=== PATIENT | male | born 1970 | race Caucasian/White ===

== ENCOUNTER 2019-02-25 17:24 | Inpatient (IN) | payer BC, OTHER ==
[~2019-02-25] VITALS: Ht 185.4 cm; Wt 76.7 kg
--- NOTE | 2019-02-25 17:54 | NUR ---
THIS IS A 49 YO MALE BIBA FROM [facility] FOR CHEST PRESSURE AND PAIN LOCATED ON LEFT SIDE OF CHEST WITH ASSOCIATED NUMBNESS AND TINGLING IN LEFT ARM. PATIENT STATES "I WAS SHOVELING MY WHOLE DRIVEWAY NAD GOT A LITTLE SHORT OF BREATH SO I WENT INSIDE, SAT DOWN AND WATCHED THE GAME. I WENT TO THE BATHROOM TO POOP, BUT WAS STRAINING, THEN WENT BACK OUT AND STARTED HAVING THE CHEST PRESSURE AND LEFT ARM TINGLING". PATIENT WAS SEEN AT [facility], FIRST TROPONIN WAS 0.00, SECOND TROPONIN WAS 0.11. TYLENOL WAS GIVEN AT [facility], NO MEDICATIONS GIVEN EN ROUTE. PAIN HAD CEASED, NO NITROGLYCERIN GIVEN. PATIENT HAS HX OF DIABETES, BLOOD SUGAR WAS 240, WAS GIVEN 4 UNITS OF INSULIN AT [facility]. PATIENT IS A&OX4, DENIES PAIN AT THIS TIME, NO ACUTE DISTRESS, VSS AT THIS MOMENT. DENIES NEEDS AT THIS TIME.
--- NOTE | 2019-02-25 18:13 | NUR ---
DISCUSSED WITH MD ABOUT NEED FOR ANTICOAGULANT THERAPY, MD STATED HE WANTS TO HOLD FOR NOW UNTIL REPEAT TROPONIN RESULTS.
[2019-02-25] MEDS ORDERED: ASPIRIN 81 MG TABLET CHEW ONE (18:27)
[2019-02-25] MEDS ORDERED: ASPIRIN 81 MG TABLET CHEW PO ONE (18:30)
--- NOTE | 2019-02-25 18:30 | NUR ---
dr darnell spoke with dr rendon
[2019-02-25] MEDS ORDERED: PLEASE ENTER ALLERGIES MC SCH (18:36)
[2019-02-25] MEDS ORDERED: HEPARIN 25,000 UNITS/500ML PMX 500 ML ONE (18:52)
[2019-02-25] MEDS ORDERED: HEPARIN 5,000 UNITS/ML, 1ML ONE (18:52)
--- NOTE | 2019-02-25 18:57 | NUR ---
REPORT GIVEN TO YISSEL GARCIA. PLAN OF CARE DISCUSSED.
[2019-02-25] MEDS ORDERED: SODIUM CHLORIDE FLUSH 10ML SYR IVF PRN (19:00)
[2019-02-25] MEDS: HEPARIN 25,000 UNITS/500ML PMX 500 ML IV PRN (19:11)
--- NOTE | 2019-02-25 19:11 | NUR ---
SECOND PIV ESTABLISHED. HEPARIN INITIATED PER PROTOCOL. ANTI XA ORDER PLACED. HOSPITALIST AT BEDSIDE TO DISCUSS POC. PT DENIES CP AT THIS TIME OR NEED FOR PAIN MEDICATIONS. NSR ON MONITOR. PWD. NAD
[2019-02-25] MEDS ORDERED: NITROGLYCERIN 0.4 MG BOTTLE (25 TABS) SL PRN (19:30)
[2019-02-25] MEDS ORDERED: POLYETHYLENE GLYCOL 17 GM PACKET PO PRN (19:30)
[2019-02-25] MEDS ORDERED: BISACODYL 10 MG SUPP PR PRN (19:30)
[2019-02-25] MEDS ORDERED: HEPARIN 5,000 UNITS/ML, 1ML IV ONE (19:30)
[2019-02-25] MEDS ORDERED: ONDANSETRON ODT 4 MG PO PRN (19:30)
[2019-02-25] MEDS ORDERED: morphine SULFATE 10 MG/ML, 1ML IVPush PRN (19:30)
[2019-02-25 20:02] VITALS: BP 129/69
[2019-02-25 20:23] LABS: HEMOGLOBIN A1C 7.2 % (4.2-6.3)
[2019-02-25] MEDS: ATORVASTATIN 80 MG TABLET PO SCH (20:24)
[2019-02-25] MEDS: SODIUM CHLORIDE FLUSH 10ML SYR IVF SCH (20:25)
[2019-02-26 00:49] VITALS: BP 108/70
[2019-02-26] MEDS ORDERED: ASPIRIN 325 MG TABLET EC PO SCH (06:00)
[2019-02-26 07:02] LABS: BASOPHILS # (AUTO) 0.03 x10^3/uL (0-0.1); BASOPHILS % (AUTO) 0 % (0-1); EOSINOPHILS # (AUTO) 0.09 x10^3/uL (0-0.4); EOSINOPHILS % (AUTO) 1 % (1-7); LYMPHOCYTES # (AUTO) 1.47 x10^3/uL (1-3.4); LYMPHOCYTES % (AUTO) 16 % (22-44); MD NO; MEAN CORPUSCULAR HGB CONC 34.7 g/dL (33.2-36.2); MEAN CORPUSCULAR VOLUME 89.5 fL (81-97); MEAN PLATELET VOLUME 7.9 fL (7.4-10.4); MONOCYTES # (AUTO) 0.78 x10^3/uL (0.2-0.8); MONOCYTES % (AUTO) 8 % (2-9); NEUTROPHILS # (AUTO) 7.12 x10^3/uL (1.8-6.8); NEUTROPHILS % (AUTO) 75 % (42-75); PLATELET COUNT 242 x10^3/uL (130-400); RED BLOOD COUNT 4.88 x10^6/uL (4.38-5.82); RED CELL DISTRIBUTION WIDTH 13.4 % (9.4-14.8)
[2019-02-26 07:06] LABS: ALBUMIN 3.2 g/dL (3.4-5.0)
[2019-02-26 07:13] LABS: ALKALINE PHOSPHATASE 91 U/L (45-117); BILIRUBIN,TOTAL 2.1 mg/dL (0.2-1.0); CHOL/HDL RATIO 9.2; CHOLESTEROL, TOTAL 183 mg/dL (140-239); CREATININE 0.86 mg/dL (0.7-1.3); HDL CHOL % 11 % (26-37); HDL CHOLESTEROL (DIRECT) 20 mg/dL (40-60)
[2019-02-26 07:40] LABS: ANION GAP 10 mmol/L (5-15); CHLORIDE 107 mmol/L (98-107)
[2019-02-26 07:45] VITALS: BP 116/76
[2019-02-26 07:58] LABS: ALANINE AMINOTRANSFERASE 58 U/L (12-78)
[2019-02-26 08:03] LABS: TRIGLYCERIDES 1134 mg/dL (50-200)
[2019-02-26 08:06] LABS: TOTAL PROTEIN 6.5 g/dL (6.4-8.2)
[2019-02-26] MEDS: SENNA/DOCUSATE TABLET PO SCH (08:49)
[2019-02-26] MEDS: SODIUM CHLORIDE FLUSH 10ML SYR IVF SCH ×2 (08:49→21:42)
[2019-02-26] MEDS ORDERED: SODIUM CHLORIDE 0.9% 1,000 ML IV SCH ×2 (11:00→13:50)
[2019-02-26] MEDS: ACETAMINOPHEN 325 MG TABLET PO PRN ×2 (11:17→21:42)
[2019-02-26] MEDS ORDERED: FENTANYL PF 100 MCG/2ML ONE (12:57)
[2019-02-26] MEDS ORDERED: MIDAZOLAM 1 MG/ML, 5ML ONE (12:57)
[2019-02-26] MEDS ORDERED: TICAGRELOR 90 MG TABLET ONE (12:57)
[2019-02-26] MEDS ORDERED: BIVALIRUDIN 250 MG ONE (12:58)
[2019-02-26] MEDS ORDERED: LIDOCAINE-MPF 1%, 5ML ONE (12:58)
[2019-02-26] MEDS ORDERED: VERAPAMIL 2.5 MG/ML, 2ML ONE (12:58)
[2019-02-26] MEDS ORDERED: DULA0.75 INJ (13:01)
[2019-02-26 13:16] VITALS: BP 116/75
[2019-02-26] MEDS ORDERED: SODIUM CHLORIDE 0.9%, 250ML IVBOLUS ONE (15:30)
[2019-02-26] MEDS: INSULIN LISPRO 100 UNITS/ML, PEN SQ-INSULIN SCH ×3 (18:03→21:54)
[2019-02-26 20:37] VITALS: BP 97/73
[2019-02-26] MEDS: ATORVASTATIN 80 MG TABLET PO SCH (21:42)
[2019-02-26] MEDS: HEPARIN 25,000 UNITS/500ML PMX 500 ML IV PRN (21:47)
[2019-02-27] MEDS: HEPARIN 5,000 UNITS/ML, 1ML IV PRN ×2 (00:32→08:33)
[2019-02-27 03:24] VITALS: BP 112/79
[2019-02-27 05:31] LABS: ALANINE AMINOTRANSFERASE 51 U/L (12-78); ALBUMIN 3.4 g/dL (3.4-5.0); ANION GAP 6 mmol/L (5-15); CHLORIDE 108 mmol/L (98-107); CREATININE 0.78 mg/dL (0.7-1.3)
[2019-02-27 05:33] LABS: ALKALINE PHOSPHATASE 88 U/L (45-117); BILIRUBIN,TOTAL 2.6 mg/dL (0.2-1.0); CALCIUM 8.5 mg/dL (8.5-10.1)
[2019-02-27 05:34] LABS: BASOPHILS # (AUTO) 0.03 x10^3/uL (0-0.1); BASOPHILS % (AUTO) 0 % (0-1); EOSINOPHILS # (AUTO) 0.09 x10^3/uL (0-0.4); EOSINOPHILS % (AUTO) 1 % (1-7); LYMPHOCYTES # (AUTO) 1.47 x10^3/uL (1-3.4); LYMPHOCYTES % (AUTO) 19 % (22-44); MD NO; MEAN CORPUSCULAR HEMOGLOBIN 30.2 pg (27.5-34.5); MEAN CORPUSCULAR HGB CONC 33.7 g/dL (33.2-36.2); MEAN CORPUSCULAR VOLUME 89.6 fL (81-97); MEAN PLATELET VOLUME 8.1 fL (7.4-10.4); MONOCYTES # (AUTO) 0.86 x10^3/uL (0.2-0.8); MONOCYTES % (AUTO) 11 % (2-9); NEUTROPHILS # (AUTO) 5.47 x10^3/uL (1.8-6.8); NEUTROPHILS % (AUTO) 69 % (42-75); PLATELET COUNT 215 x10^3/uL (130-400); RED BLOOD COUNT 5.01 x10^6/uL (4.38-5.82); RED CELL DISTRIBUTION WIDTH 12.9 % (9.4-14.8)
[2019-02-27] MEDS ORDERED: ASPIRIN 81 MG TABLET EC PO SCH (06:00)
[2019-02-27] MEDS: SENNA/DOCUSATE TABLET PO SCH (08:32)
[2019-02-27] MEDS: SODIUM CHLORIDE FLUSH 10ML SYR IVF SCH ×2 (08:34→21:49)
[2019-02-27] MEDS ORDERED: MAGNESIUM HYDROXIDE 8%, 30ML UDC PO PRN (09:00)
[2019-02-27] MEDS: INSULIN LISPRO 100 UNITS/ML, PEN SQ-INSULIN SCH ×4 (09:15→21:50)
[2019-02-27 12:05] VITALS: BP 110/75
[2019-02-27] MEDS ORDERED: METOPROLOL TARTRATE 25 MG TABLET PO ONE (13:30)
[2019-02-27] MEDS ORDERED: CHLORHEXIDINE 15 ML UDC MM PRN (13:30)
[2019-02-27] MEDS ORDERED: INSULIN LISPRO 100 UNITS/ML, PEN SQ-INSULIN SCH (13:30)
[2019-02-27 14:09] LABS: BASOPHILS # (AUTO) 0.02 x10^3/uL (0-0.1); BASOPHILS % (AUTO) 0 % (0-1); EOSINOPHILS # (AUTO) 0.03 x10^3/uL (0-0.4); EOSINOPHILS % (AUTO) 0 % (1-7); LYMPHOCYTES # (AUTO) 1.18 x10^3/uL (1-3.4); LYMPHOCYTES % (AUTO) 16 % (22-44); MD NO; MEAN CORPUSCULAR HEMOGLOBIN 30.2 pg (27.5-34.5); MEAN CORPUSCULAR HGB CONC 33.4 g/dL (33.2-36.2); MEAN CORPUSCULAR VOLUME 90.2 fL (81-97); MEAN PLATELET VOLUME 7.8 fL (7.4-10.4); MONOCYTES # (AUTO) 0.77 x10^3/uL (0.2-0.8); MONOCYTES % (AUTO) 11 % (2-9); NEUTROPHILS # (AUTO) 5.29 x10^3/uL (1.8-6.8); NEUTROPHILS % (AUTO) 73 % (42-75); PLATELET COUNT 254 x10^3/uL (130-400); RED BLOOD COUNT 5.21 x10^6/uL (4.38-5.82); RED CELL DISTRIBUTION WIDTH 12.9 % (9.4-14.8)
[2019-02-27 14:12] LABS: ANION GAP 6 mmol/L (5-15); CALCIUM 9.1 mg/dL (8.5-10.1); CHLORIDE 105 mmol/L (98-107); CREATININE 0.99 mg/dL (0.7-1.3)
[2019-02-27 14:13] LABS: ALANINE AMINOTRANSFERASE 50 U/L (12-78); ALBUMIN 3.7 g/dL (3.4-5.0)
[2019-02-27 14:15] LABS: ALKALINE PHOSPHATASE 96 U/L (45-117); TOTAL PROTEIN 7.8 g/dL (6.4-8.2)
[2019-02-27 14:20] LABS: INTERNATIONAL NORMALIZED RATIO 1.02 (0.93-1.1); PROTHROMBIN TIME 10.7 Seconds (9.6-11.5)
[2019-02-27 15:49] LABS: HEMOGLOBIN A1C 7.2 % (4.2-6.3)
[2019-02-27 16:30] VITALS: BP 113/74
[2019-02-27 16:39] LABS: MICROSCOPIC NOT IND
[2019-02-27] MEDS ORDERED: SODIUM CHLORIDE FLUSH 10ML SYR IVF SCH (21:00)
[2019-02-27] MEDS: HEPARIN 25,000 UNITS/500ML PMX 500 ML IV PRN (21:07)
[2019-02-27] MEDS: MUPIROCIN OINT 2%, 22GM TP SCH (21:48)
[2019-02-27] MEDS: ATORVASTATIN 80 MG TABLET PO SCH (21:48)
[2019-02-27 21:56] VITALS: BP 117/84
[2019-02-28 04:10] VITALS: BP_SYST 112; BP_SYST 117; BP_DIAS 70; BP_DIAS 75
[2019-02-28] MEDS ORDERED: METOPROLOL TARTRATE 25 MG TABLET ONE (04:18)
[2019-02-28] MEDS: MUPIROCIN OINT 2%, 22GM TP SCH (05:07)
[2019-02-28] MEDS ORDERED: HEPARIN 1,000 UNITS/ML, 10ML ONE (06:49)
[2019-02-28] MEDS ORDERED: PAPAVERINE 30 MG/ML, 2ML ONE (06:49)
[2019-02-28] MEDS ORDERED: MIDAZOLAM 10MG/2 ML ONE (07:28)
[2019-02-28] MEDS ORDERED: FENTANYL PF 250 MCG/5ML ONE ×4 (07:28→07:29)
[2019-02-28] MEDS ORDERED: CALCIUM CHLORIDE 10%, 10ML SYR ONE (07:29)
[2019-02-28] MEDS ORDERED: PROPOFOL 10 MG/ML, 20ML ONE (07:29)
[2019-02-28] MEDS ORDERED: ROCURONIUM 10MG/ML,5ML ONE ×3 (07:29→10:42)
[2019-02-28] MEDS ORDERED: AMINOCAPROIC ACID 250 MG/ML, 20ML ONE ×2 (07:29)
[2019-02-28] MEDS ORDERED: PHENYLEPHRINE 10 MG/ML ONE (07:29)
[2019-02-28] MEDS ORDERED: EPINEPHRINE 1 MG/ML, 1ML ONE (07:29)
[2019-02-28] MEDS ORDERED: DEXMEDETOMIDINE 200 MCG in SODIUM CHLORIDE 0.9% 48 ML IV SCH (07:30)
[2019-02-28] MEDS ORDERED: REGULAR INSULIN 62.5 UNITS in SODIUM CHLORIDE 0.9% 249.375 ML IV PRN (07:30)
[2019-02-28] MEDS ORDERED: POTASSIUM CHLORIDE 80 MEQ, SODIUM BICARBONATE 8.4% 10 MEQ, MAGNESIUM SULFATE 0.5 GM, LI... IV PRN (07:30)
[2019-02-28] MEDS ORDERED: VANCOMYCIN 1,300 MG in SODIUM CHLORIDE 0.9% 250 ML IVPB PRN (07:30)
[2019-02-28] MEDS ORDERED: EPINEPHRINE 2 MG in SODIUM CHLORIDE 0.9% 248 ML IV SCH (07:30)
[2019-02-28] MEDS ORDERED: CEFUROXIME 1.5 GM in SODIUM CHLORIDE 0.9% 50 ML IVPB PRN (07:30)
[2019-02-28] MEDS ORDERED: PHENYLEPHRINE 10 MG in SODIUM CHLORIDE 0.9% 249 ML IV PRN ×2 (07:30→12:05)
[2019-02-28] MEDS ORDERED: MANNITOL PMX 20% 500 ML IVPB PRN (07:30)
[2019-02-28] MEDS ORDERED: ALBUMIN HUMAN 5% 500 ML IV PRN (07:30)
[2019-02-28] MEDS ORDERED: HEPARIN 1,000 UNITS/ML, 10ML IV ONE (09:09)
[2019-02-28] MEDS ORDERED: PAPAVERINE 30 MG/ML, 2ML IV ONE (09:10)
[2019-02-28] MEDS ORDERED: PROTAMINE SULFATE 10 MG/ML, 25ML ONE (10:42)
[2019-02-28] MEDS ORDERED: DESMOPRESSIN 24 MCG in SODIUM CHLORIDE 0.9% 50 ML IVPB ONE (12:00)
[2019-02-28] MEDS ORDERED: ALBUMIN HUMAN 25% 50 ML ONE (12:05)
[2019-02-28] MEDS ORDERED: DEXMEDETOMIDINE 200 MCG in SODIUM CHLORIDE 0.9% 48 ML IV PRN (12:05)
[2019-02-28] MEDS ORDERED: SODIUM CHLORIDE 0.9% 1,000 ML IV PRN (12:05)
[2019-02-28] MEDS ORDERED: SODIUM BICARBONATE 1 MEQ/ML, 50ML VIAL ONE (12:05)
[2019-02-28] MEDS ORDERED: LIDOCAINE-MPF 2% ,5ML ONE (12:05)
[2019-02-28] MEDS ORDERED: VASOPRESSIN 50 UNIT in SODIUM CHLORIDE 0.9% 247.5 ML IV PRN (12:05)
[2019-02-28] MEDS ORDERED: NITROGLYCERIN/D5W PMX 250 ML IV PRN (12:05)
[2019-02-28] MEDS ORDERED: DOBUTAMINE 250 MG in SODIUM CHLORIDE 0.9% 230 ML IV PRN (12:05)
[2019-02-28] MEDS ORDERED: HEPARIN 1,000 UNITS/ML, 30ML ONE (12:05)
[2019-02-28] MEDS ORDERED: SODIUM BICARB 8.4%, 50ML SYRINGE ONE (12:06)
[2019-02-28] MEDS: REGULAR INSULIN 62.5 UNITS in SODIUM CHLORIDE 0.9% 249.375 ML IV PRN ×2 (12:28→23:28)
[2019-02-28] MEDS ORDERED: PROCHLORPERAZINE 5 MG/ML, 2ML IVPush PRN (12:30)
[2019-02-28] MEDS ORDERED: ONDANSETRON 2MG/ML, 2ML IVPush PRN (12:30)
[2019-02-28] MEDS ORDERED: BISACODYL 10 MG SUPP PR PRN (12:30)
[2019-02-28] MEDS: KSCALE TO 4.5 IV SCH ×2 (12:30→18:56)
[2019-02-28] MEDS ORDERED: SODIUM BICARB 8.4%, 50ML SYRINGE IV PRN (12:30)
[2019-02-28] MEDS ORDERED: DEXTROSE 50%, 50ML SYRINGE IVPush PRN (12:30)
[2019-02-28] MEDS ORDERED: EPINEPHRINE 2 MG in SODIUM CHLORIDE 0.9% 248 ML IV PRN (12:30)
[2019-02-28] MEDS ORDERED: ACETAMINOPHEN 650 MG SUPP PR PRN (12:30)
[2019-02-28] MEDS ORDERED: INSULIN REGULAR 100 UNITS/ML, 3ML VIAL IVPush PRN (12:30)
[2019-02-28] MEDS ORDERED: BISACODYL 5 MG EC TABLET PO PRN (12:30)
[2019-02-28] MEDS ORDERED: GLUCAGON 1 MG IM PRN (12:30)
[2019-02-28] MEDS ORDERED: DEXTROSE 4 GM TAB.CHEW PO PRN (12:30)
[2019-02-28 12:40] LABS: GLUCOSE BY BLOOD GAS ANALYZER 216 mg/dL (70-110); HEMOGLOBIN BY BLOOD GAS ANALYZ 11.5 g/dL (14.0-18.0); POTASSIUM BY BLOOD GAS ANALYZR 3.3 mmol/L (3.6-5.5)
[2019-02-28] MEDS: MORPHINE SULFATE 4 MG/ML, 1ML IVPush PRN ×2 (13:30→16:27)
[2019-02-28] MEDS ORDERED: POTASSIUM CHLORIDE 30 MEQ in SODIUM CHLORIDE 0.9% 100 ML IV ONE (14:01)
[2019-02-28] MEDS: INSULIN LISPRO 100 UNITS/ML, PEN SQ-INSULIN SCH ×2 (16:00→20:39)
[2019-02-28] MEDS: OXYcodone IR 5MG TABLET PO PRN (16:21)
[2019-02-28] MEDS: MAGNESIUM SULFATE 1 GM in SODIUM CHLORIDE 0.9% 50 ML IVPB SCH (16:48)
[2019-02-28] MEDS: LACTATED RINGERS 1,000 ML IV PRN ×3 (17:00→20:00)
[2019-02-28] MEDS ORDERED: HYDROmorphone 1 MG/ML, 1ML INJ IV ONE (18:00)
[2019-02-28] MEDS ORDERED: HYDROmorphone 2 MG/ML, 1ML ONE (18:54)
[2019-02-28] MEDS: ACETAMINOPHEN 325 MG TABLET PO PRN (19:14)
[2019-02-28] MEDS: SODIUM CHLORIDE FLUSH 10ML SYR IVF SCH (20:34)
[2019-02-28] MEDS: MUPIROCIN OINT 2%, 22GM NAS SCH (20:34)
[2019-02-28] MEDS: CEFUROXIME 1.5 GM in SODIUM CHLORIDE 0.9% 50 ML IVPB SCH (20:34)
[2019-02-28] MEDS: VANCOMYCIN 1,300 MG in SODIUM CHLORIDE 0.9% 250 ML IVPB SCH (20:34)
[2019-02-28] MEDS: DOCUSATE 100 MG CAPSULE PO SCH (20:35)
[2019-02-28] MEDS ORDERED: ALBUMIN HUMAN 5% 500 ML IV ONE (21:30)
[2019-03-01] MEDS: OXYcodone IR 5MG TABLET PO PRN ×6 (00:26→20:13)
[2019-03-01] MEDS: KSCALE TO 4.5 IV SCH ×2 (00:47→05:40)
[2019-03-01] MEDS: INSULIN LISPRO 100 UNITS/ML, PEN SQ-INSULIN SCH ×5 (04:26→20:27)
[2019-03-01 04:50] LABS: INTERNATIONAL NORMALIZED RATIO 1.09 (0.93-1.1); PROTHROMBIN TIME 11.4 Seconds (9.6-11.5)
[2019-03-01 04:55] LABS: ANION GAP 7 mmol/L (5-15); CHLORIDE 112 mmol/L (98-107)
[2019-03-01 05:11] LABS: BASOPHILS % (AUTO) 0 % (0-1); EOSINOPHILS % (AUTO) 0 % (1-7); LYMPHOCYTES # (AUTO) 0.44 x10^3/uL (1-3.4); LYMPHOCYTES % (AUTO) 6 % (22-44); MD NO; MEAN CORPUSCULAR HEMOGLOBIN 30.8 pg (27.5-34.5); MEAN CORPUSCULAR VOLUME 90.8 fL (81-97); MEAN PLATELET VOLUME 7.8 fL (7.4-10.4); MONOCYTES # (AUTO) 0.95 x10^3/uL (0.2-0.8); MONOCYTES % (AUTO) 12 % (2-9); NEUTROPHILS % (AUTO) 83 % (42-75); PLATELET COUNT 148 x10^3/uL (130-400); RED BLOOD COUNT 3.32 x10^6/uL (4.38-5.82); RED CELL DISTRIBUTION WIDTH 13.1 % (9.4-14.8)
[2019-03-01] MEDS: SODIUM CHLORIDE FLUSH 10ML SYR IVF SCH ×3 (08:46→20:27)
[2019-03-01] MEDS: VANCOMYCIN 1,300 MG in SODIUM CHLORIDE 0.9% 250 ML IVPB SCH (08:46)
[2019-03-01] MEDS: CEFUROXIME 1.5 GM in SODIUM CHLORIDE 0.9% 50 ML IVPB SCH (08:46)
[2019-03-01] MEDS: DOCUSATE 100 MG CAPSULE PO SCH ×2 (08:59→20:12)
[2019-03-01] MEDS: ASPIRIN 81 MG TABLET EC PO SCH (08:59)
[2019-03-01] MEDS: TICAGRELOR 90 MG TABLET PO SCH ×2 (08:59→20:13)
[2019-03-01] MEDS: MUPIROCIN OINT 2%, 22GM NAS SCH ×2 (09:00→20:12)
[2019-03-01] MEDS: METOPROLOL TARTRATE 25 MG TABLET PO/NG SCH ×2 (09:00→20:14)
[2019-03-01] MEDS ORDERED: MAGNESIUM HYDROXIDE 8%, 30ML UDC PO PRN (09:00)
[2019-03-01] MEDS ORDERED: HYDROcodone/APAP 5/325 TABLET PO PRN (11:00)
[2019-03-01 13:53] VITALS: BP 100/65
[2019-03-01] MEDS: MAGNESIUM SULFATE 1 GM in SODIUM CHLORIDE 0.9% 50 ML IVPB SCH (17:09)
[2019-03-01] MEDS: CHLORHEXIDINE 15 ML UDC MM SCH (20:12)
[2019-03-01] MEDS: ATORVASTATIN 80 MG TABLET PO SCH (20:13)
[2019-03-02] MEDS: OXYcodone IR 5MG TABLET PO PRN ×7 (00:09→21:37)
[2019-03-02 00:12] VITALS: BP 106/68
[2019-03-02 03:42] LABS: BASOPHILS # (AUTO) 0.02 x10^3/uL (0-0.1); BASOPHILS % (AUTO) 0 % (0-1); EOSINOPHILS # (AUTO) 0.01 x10^3/uL (0-0.4); EOSINOPHILS % (AUTO) 0 % (1-7); LYMPHOCYTES # (AUTO) 0.56 x10^3/uL (1-3.4); LYMPHOCYTES % (AUTO) 6 % (22-44); MD NO; MEAN CORPUSCULAR HEMOGLOBIN 30.7 pg (27.5-34.5); MEAN CORPUSCULAR HGB CONC 33.6 g/dL (33.2-36.2); MEAN CORPUSCULAR VOLUME 91.4 fL (81-97); MEAN PLATELET VOLUME 8.3 fL (7.4-10.4); MONOCYTES # (AUTO) 0.96 x10^3/uL (0.2-0.8); MONOCYTES % (AUTO) 11 % (2-9); NEUTROPHILS # (AUTO) 7.36 x10^3/uL (1.8-6.8); NEUTROPHILS % (AUTO) 83 % (42-75); PLATELET COUNT 175 x10^3/uL (130-400); RED BLOOD COUNT 3.38 x10^6/uL (4.38-5.82); RED CELL DISTRIBUTION WIDTH 12.9 % (9.4-14.8)
[2019-03-02 03:50] LABS: ANION GAP 7 mmol/L (5-15); CALCIUM 8.5 mg/dL (8.5-10.1); CHLORIDE 106 mmol/L (98-107); CREATININE 0.82 mg/dL (0.7-1.3)
[2019-03-02 07:11] VITALS: BP 125/70
[2019-03-02] MEDS: SODIUM CHLORIDE FLUSH 10ML SYR IVF SCH ×4 (09:00→21:35)
[2019-03-02] MEDS: ENOXAPARIN 40 MG/0.4 ML SQ SCH (09:00)
[2019-03-02] MEDS: INSULIN LISPRO 100 UNITS/ML, PEN SQ-INSULIN SCH ×4 (09:02→21:48)
[2019-03-02] MEDS: CHLORHEXIDINE 15 ML UDC MM SCH ×2 (09:03→21:35)
[2019-03-02] MEDS: MUPIROCIN OINT 2%, 22GM NAS SCH ×2 (09:03→21:35)
[2019-03-02] MEDS: TICAGRELOR 90 MG TABLET PO SCH ×2 (09:04→21:37)
[2019-03-02] MEDS: DOCUSATE 100 MG CAPSULE PO SCH ×2 (09:04→21:37)
[2019-03-02] MEDS: METOPROLOL TARTRATE 25 MG TABLET PO/NG SCH ×2 (09:04→21:37)
[2019-03-02] MEDS: ASPIRIN 81 MG TABLET EC PO SCH (09:08)
[2019-03-02 13:55] VITALS: BP 114/72
[2019-03-02] MEDS: MAGNESIUM SULFATE 1 GM in SODIUM CHLORIDE 0.9% 50 ML IVPB SCH (17:51)
[2019-03-02 20:31] VITALS: BP 115/71
[2019-03-02] MEDS: ATORVASTATIN 80 MG TABLET PO SCH (21:47)
[2019-03-03 01:25] VITALS: BP 113/88
[2019-03-03] MEDS: OXYcodone IR 5MG TABLET PO PRN ×7 (01:36→23:09)
[2019-03-03 02:18] LABS: ANION GAP 9 mmol/L (5-15); CALCIUM 8.8 mg/dL (8.5-10.1); CHLORIDE 105 mmol/L (98-107); CREATININE 0.77 mg/dL (0.7-1.3)
[2019-03-03 08:00] VITALS: BP 113/78
[2019-03-03] MEDS: CHLORHEXIDINE 15 ML UDC MM SCH (08:07)
[2019-03-03] MEDS: INSULIN LISPRO 100 UNITS/ML, PEN SQ-INSULIN SCH ×4 (08:08→20:15)
[2019-03-03] MEDS: DOCUSATE 100 MG CAPSULE PO SCH ×2 (08:10→20:13)
[2019-03-03] MEDS: TICAGRELOR 90 MG TABLET PO SCH ×2 (08:10→20:12)
[2019-03-03] MEDS: ASPIRIN 81 MG TABLET EC PO SCH (08:10)
[2019-03-03] MEDS: METOPROLOL TARTRATE 25 MG TABLET PO/NG SCH ×2 (08:11→20:12)
[2019-03-03] MEDS: ENOXAPARIN 40 MG/0.4 ML SQ SCH (08:12)
[2019-03-03] MEDS: MUPIROCIN OINT 2%, 22GM NAS SCH ×2 (08:13→20:12)
[2019-03-03] MEDS: SODIUM CHLORIDE FLUSH 10ML SYR IVF SCH ×4 (08:14→22:43)
[2019-03-03 14:00] VITALS: BP 106/69
[2019-03-03 20:01] VITALS: BP 120/76
[2019-03-03] MEDS: ATORVASTATIN 80 MG TABLET PO SCH (20:12)
[2019-03-04 00:14] VITALS: BP 112/78
[2019-03-04] MEDS ORDERED: MELATONIN 3 MG TABLET PO PRN (00:30)
[2019-03-04 05:45] LABS: BASOPHILS # (AUTO) 0.03 x10^3/uL (0-0.1); BASOPHILS % (AUTO) 0 % (0-1); EOSINOPHILS # (AUTO) 0.14 x10^3/uL (0-0.4); EOSINOPHILS % (AUTO) 2 % (1-7); LYMPHOCYTES # (AUTO) 0.82 x10^3/uL (1-3.4); LYMPHOCYTES % (AUTO) 13 % (22-44); MD NO; MEAN CORPUSCULAR HEMOGLOBIN 30.4 pg (27.5-34.5); MEAN CORPUSCULAR HGB CONC 33.5 g/dL (33.2-36.2); MEAN CORPUSCULAR VOLUME 90.7 fL (81-97); MEAN PLATELET VOLUME 7.9 fL (7.4-10.4); MONOCYTES # (AUTO) 0.86 x10^3/uL (0.2-0.8); MONOCYTES % (AUTO) 13 % (2-9); NEUTROPHILS # (AUTO) 4.68 x10^3/uL (1.8-6.8); NEUTROPHILS % (AUTO) 72 % (42-75); PLATELET COUNT 297 x10^3/uL (130-400); RED BLOOD COUNT 4.13 x10^6/uL (4.38-5.82); RED CELL DISTRIBUTION WIDTH 13.1 % (9.4-14.8)
[2019-03-04] MEDS: ACETAMINOPHEN 325 MG TABLET PO PRN ×3 (06:21→21:14)
[2019-03-04] MEDS: OXYcodone IR 5MG TABLET PO PRN ×4 (06:27→22:33)
[2019-03-04 07:27] VITALS: BP 114/67
[2019-03-04] MEDS: ENOXAPARIN 40 MG/0.4 ML SQ SCH (08:30)
[2019-03-04] MEDS: TICAGRELOR 90 MG TABLET PO SCH ×2 (08:30→21:13)
[2019-03-04] MEDS: METOPROLOL TARTRATE 25 MG TABLET PO/NG SCH ×2 (08:30→21:13)
[2019-03-04] MEDS: DOCUSATE 100 MG CAPSULE PO SCH ×2 (08:31→21:13)
[2019-03-04] MEDS: MUPIROCIN OINT 2%, 22GM NAS SCH ×2 (08:31→21:12)
[2019-03-04] MEDS: ASPIRIN 81 MG TABLET EC PO SCH (08:31)
[2019-03-04] MEDS: SODIUM CHLORIDE FLUSH 10ML SYR IVF SCH ×4 (08:34→21:12)
[2019-03-04] MEDS: INSULIN LISPRO 100 UNITS/ML, PEN SQ-INSULIN SCH ×4 (08:34→21:22)
[2019-03-04 10:22] LABS: ALANINE AMINOTRANSFERASE 47 U/L (12-78); ALBUMIN 2.9 g/dL (3.4-5.0); ANION GAP 9 mmol/L (5-15); CALCIUM 9.1 mg/dL (8.5-10.1); CHLORIDE 104 mmol/L (98-107); CREATININE 0.87 mg/dL (0.7-1.3)
[2019-03-04 10:24] LABS: ALKALINE PHOSPHATASE 83 U/L (45-117); BILIRUBIN,TOTAL 2.5 mg/dL (0.2-1.0); TOTAL PROTEIN 6.9 g/dL (6.4-8.2)
[2019-03-04 15:53] VITALS: BP 114/76
[2019-03-04] MEDS ORDERED: POTASSIUM CHLORIDE 20 MEQ TAB.ER.PRT PO ONE (16:30)
[2019-03-04 18:57] VITALS: BP 100/67
[2019-03-04] MEDS: ATORVASTATIN 80 MG TABLET PO SCH (21:13)
[2019-03-05 00:55] VITALS: BP 129/86
[2019-03-05] MEDS: OXYcodone IR 5MG TABLET PO PRN ×3 (03:12→12:56)
[2019-03-05 04:57] LABS: BASOPHILS # (AUTO) 0.03 x10^3/uL (0-0.1); BASOPHILS % (AUTO) 1 % (0-1); EOSINOPHILS # (AUTO) 0.19 x10^3/uL (0-0.4); EOSINOPHILS % (AUTO) 4 % (1-7); LYMPHOCYTES # (AUTO) 0.97 x10^3/uL (1-3.4); LYMPHOCYTES % (AUTO) 18 % (22-44); MD NO; MEAN CORPUSCULAR HEMOGLOBIN 30.1 pg (27.5-34.5); MEAN CORPUSCULAR VOLUME 91.2 fL (81-97); MEAN PLATELET VOLUME 7.8 fL (7.4-10.4); MONOCYTES # (AUTO) 0.87 x10^3/uL (0.2-0.8); MONOCYTES % (AUTO) 16 % (2-9); NEUTROPHILS # (AUTO) 3.46 x10^3/uL (1.8-6.8); NEUTROPHILS % (AUTO) 63 % (42-75); PLATELET COUNT 331 x10^3/uL (130-400); RED BLOOD COUNT 4.04 x10^6/uL (4.38-5.82); RED CELL DISTRIBUTION WIDTH 13.3 % (9.4-14.8)
[2019-03-05 05:05] LABS: ALANINE AMINOTRANSFERASE 54 U/L (12-78); ALBUMIN 2.8 g/dL (3.4-5.0); ANION GAP 5 mmol/L (5-15); CALCIUM 8.8 mg/dL (8.5-10.1); CHLORIDE 107 mmol/L (98-107); CREATININE 0.86 mg/dL (0.7-1.3)
[2019-03-05 05:08] LABS: ALKALINE PHOSPHATASE 86 U/L (45-117); BILIRUBIN,TOTAL 1.9 mg/dL (0.2-1.0); TOTAL PROTEIN 6.9 g/dL (6.4-8.2)
[2019-03-05] MEDS: ACETAMINOPHEN 325 MG TABLET PO PRN (06:14)
[2019-03-05 06:51] VITALS: BP 118/76
[2019-03-05] MEDS: ENOXAPARIN 40 MG/0.4 ML SQ SCH (08:31)
[2019-03-05] MEDS: DOCUSATE 100 MG CAPSULE PO SCH (08:31)
[2019-03-05] MEDS: TICAGRELOR 90 MG TABLET PO SCH (08:32)
[2019-03-05] MEDS: ASPIRIN 81 MG TABLET EC PO SCH (08:32)
[2019-03-05] MEDS: METOPROLOL TARTRATE 25 MG TABLET PO/NG SCH (08:33)
[2019-03-05] MEDS: SODIUM CHLORIDE FLUSH 10ML SYR IVF SCH ×2 (08:33)
[2019-03-05] MEDS: MUPIROCIN OINT 2%, 22GM NAS SCH (08:33)
[2019-03-05] MEDS: INSULIN LISPRO 100 UNITS/ML, PEN SQ-INSULIN SCH ×2 (08:36→11:28)
[2019-03-05] MEDS ORDERED: ASPI81TA45 PO (11:58)
[2019-03-05] MEDS ORDERED: ATOR-2 PO (11:58)
[2019-03-05] MEDS ORDERED: METO-93 PO (11:58)
[2019-03-05] MEDS ORDERED: TICA90TA PO (11:58)
[2019-03-06] MEDS ORDERED: METOPROLOL SUCCINATE 50 MG TAB.ER.24H PO SCH (06:00)
== END 2019-03-05 13:40 | disposition home or self-care (01) | DRG 233 ==
LOC: ED 18:29 → EDIP 18:39 → 5SO 19:58 → CCU 02-28 08:05 → 5SO 03-01 13:48 → DCLOUNGE 03-05 13:25
PROVIDERS: ADMIT Internal Medicine; ATTEND Internal Medicine
PROC: 4A023N7 Measurement of Cardiac Sampling and Pressure, Left Heart, Percutaneous Approach (ICD-10-PCS; principal; 2019-02-26)
PROC: B2151ZZ Fluoroscopy of Left Heart using Low Osmolar Contrast (ICD-10-PCS; 2019-02-26)
PROC: B2111ZZ Fluoroscopy of Multiple Coronary Arteries using Low Osmolar Contrast (ICD-10-PCS; 2019-02-26)
PROC: 02100Z9 Bypass Coronary Artery, One Artery from Left Internal Mammary, Open Approach (ICD-10-PCS; 2019-02-28)
PROC: 021009W Bypass Coronary Artery, One Artery from Aorta with Autologous Venous Tissue, Open Approach (ICD-10-PCS; 2019-02-28)
PROC: 06BQ4ZZ Excision of Left Saphenous Vein, Percutaneous Endoscopic Approach (ICD-10-PCS; 2019-02-28)
PROC: 5A1221Z Performance of Cardiac Output, Continuous (ICD-10-PCS; 2019-02-28)
DX: I21.4 Non-ST elevation (NSTEMI) myocardial infarction (principal); I50.33 Acute on chronic diastolic (congestive) heart failure; E87.1 Hypo-osmolality and hyponatremia; I77.2 Rupture of artery; J98.11 Atelectasis; D63.8 Anemia in other chronic diseases classified elsewhere; E11.65 Type 2 diabetes mellitus with hyperglycemia; E78.5 Hyperlipidemia, unspecified; I11.0 Hypertensive heart disease with heart failure; Z72.0 Tobacco use; Z79.84 Long term (current) use of oral hypoglycemic drugs; Z82.49 Family history of ischemic heart disease and other diseases of the circulatory system; Z83.3 Family history of diabetes mellitus; Z88.6 Allergy status to analgesic agent; G89.18 Other acute postprocedural pain; I25.119 Atherosclerotic heart disease of native coronary artery with unspecified angina pectoris; R13.10 Dysphagia, unspecified; Z79.899 Other long term (current) drug therapy
CPT/HCPCS: 36415; 36600; 93458; 96374; 99285; J3490; S0017; 0399T; 71045; 71046; 80048; 80053; 80061; 81003; 82040; 82330; 82800; 82803; 82810; 82947; 82962; 83036; 83735; 84100; 84132; 84295; 84484; 85014; 85018; 85025; 85049; 85347; 85384; 85520; 85576; 85610; 85730; 86704; 86706; 86708; 86803; 86850; 86900; 86923; 87040; 87070; 87081; 87086; 87205; 87340; 93005; 93306; 93312; 93321; 93325; 93880; 93970; 94002; 99156; 99157; C1769; C1894; G0378; J0171; J0583; J0697; J1644; J1650; J1815; J2250; J2597; J2704; J2720; J3010; J3370; J3475; J3480; P9045; P9047; C1751; C1760; J2270; J2370; J2440; J7030; J7050; J7120; Q9967

== ENCOUNTER → 2020-10-09 | Outpatient (CLI) | payer BC ==
[~2020-10-09] MED LIST: ASPI81TA45 PO; ATOR-2 PO; DULA0.75 INJ; METO-93 PO; TICA90TA PO
== END | disposition home or self-care (01) ==
LOC: CVU 07:55
PROVIDERS: ATTEND Internal Medicine Cardiovascular Disease
DX: I11.9 Hypertensive heart disease without heart failure (principal); I21.4 Non-ST elevation (NSTEMI) myocardial infarction; Z95.1 Presence of aortocoronary bypass graft
CPT/HCPCS: 93306; 93356

== ENCOUNTER → 2020-10-14 | Outpatient (CLI) | payer OTHER | END | disposition home or self-care (01) | LOC: CFH 11:37 | PROVIDERS: ATTEND Student in an Organized Health Care Education/Training Program | DX: E78.2 Mixed hyperlipidemia (principal); I21.4 Non-ST elevation (NSTEMI) myocardial infarction; I10 Essential (primary) hypertension; E11.9 Type 2 diabetes mellitus without complications; Z72.0 Tobacco use; Z95.1 Presence of aortocoronary bypass graft | CPT/HCPCS: 71046 ==